=== PATIENT | female | born 1955 | race Caucasian/White ===

== ENCOUNTER 2024-12-04 08:19 | Day surgery (SDC) | payer MEDICARE, OTHER ==
[2024-12-04 16:23] VITALS: BP 119/66; TEMP 97.6
== END 2024-12-04 09:25 | disposition home or self-care (01) ==
LOC: ONC/OP 08:19
PROVIDERS: ATTEND Internal Medicine
DX: M81.0 Age-related osteoporosis without current pathological fracture (principal)
CPT/HCPCS: 96372; J0897